=== PATIENT | female | born 1995 | race Hispanic/Latino ===

== ENCOUNTER 2017-05-08 10:31 | Emergency (ER) | payer OTHER ==
[2017-05-08] MEDS ORDERED: HYOSCYAMINE SULFATE 0.125 MG TAB.SUBL SL ONE (12:11)
[2017-05-08] MEDS ORDERED: ONDANSETRON ODT 4 MG TAB ONE (12:11)
== END 2017-05-08 16:12 | disposition home or self-care (01) ==
LOC: EDH 10:31
DX: R11.2 Nausea with vomiting, unspecified (principal); R19.7 Diarrhea, unspecified; R05 Cough; Z87.891 Personal history of nicotine dependence
CPT/HCPCS: 71046; 81025